=== PATIENT | male | born 1945 | race Caucasian/White ===

== ENCOUNTER 2023-03-14 07:24 | Day surgery (SDC) | payer OTHER ==
[2023-03-10 12:41] VITALS: BMI 35.6
[2023-03-14] MEDS ORDERED: PROPOFOL 120 ML ONE (07:40)
[2023-03-14 10:04] VITALS: BP 126/72; PULSE 74; RESP 18; TEMP 97.7
== END 2023-03-14 10:04 | disposition home or self-care (01) ==
LOC: FASU-ENDO 07:24
PROVIDERS: ATTEND Internal Medicine Gastroenterology
PROC: 0DBL8ZX Excision of Transverse Colon, Via Natural or Artificial Opening Endoscopic, Diagnostic (ICD-10-PCS; 2023-03-14)
PROC: 0DBK8ZX Excision of Ascending Colon, Via Natural or Artificial Opening Endoscopic, Diagnostic (ICD-10-PCS; principal; 2023-03-14 08:57)
DX: Z12.11 Encounter for screening for malignant neoplasm of colon (principal); D12.3 Benign neoplasm of transverse colon; K57.30 Diverticulosis of large intestine without perforation or abscess without bleeding; Z86.010 Personal history of colon polyps
CPT/HCPCS: 82962; 88305-TC